=== PATIENT | female | born 1935 | race Asian ===

== ENCOUNTER 2018-04-30 21:30 | Inpatient (IN) | payer OTHER, MEDICAID ==
[~2018-04-30] VITALS: Ht 147.3 cm; Wt 26.8 kg
[2018-04-30 21:30] VITALS: BP_SYST 186
--- NOTE | 2018-04-30 21:37 | NUR ---
Placed in room 1 . Placed on monitor and storage bin tender, blood pressure machine and pulse oximeter. To gown for exam. Side rails up.
--- NOTE | 2018-04-30 21:38 | NUR ---
Pt was wheeled into ED by family complaining of congestion and shortness of breath x 1 hour. Daughter states patient was eating and patient was having a hard time breathing. Pt has temperature of 99.4 upon ED arrival. O2 saturation is 88% room air. Pt appears to be short of breath. No other injuries/complaints per patient or noted.
[2018-04-30] MEDS ORDERED: IPRATROPIUM/ALBUTEROL SULFATE 3 ML AMPUL.NEB (DUONEB) ONE (21:59)
[2018-04-30] MEDS ORDERED: IPRATROPIUM/ALBUTEROL SULFATE 3 ML AMPUL.NEB (DUONEB) INH ONE (22:00)
[2018-04-30] MEDS ORDERED: NACL 0.9% 1,000 ML IV ONE ×2 (22:00→23:00)
[2018-04-30] MEDS ORDERED: ACETAMINOPHEN 650 MG/20.3 ML UDC PO ONE (22:00)
[2018-04-30 22:22] LABS: BASOPHILS # (AUTO) 0.2 K/uL (0.0-0.2); BASOPHILS % (AUTO) 2.3 % (0.0-2.0); EOSINOPHILS % (AUTO) 0.1 % (0.0-4.0); HEMATOCRIT 42.8 % (36-48); HEMOGLOBIN 14.2 g/dL (12.0-16.0); LYMPHOCYTES # (AUTO) 0.6 K/uL (1.0-5.5); LYMPHOCYTES % (AUTO) 5.6 % (20.5-51.5); MEAN CORPUSCULAR HEMOGLOBIN 30 pg (27-31); MEAN CORPUSCULAR HGB CONC 33 % (32-36); MEAN CORPUSCULAR VOLUME 90 fL (79.0-98.0); MONOCYTES # (AUTO) 0.6 K/uL (0.0-1.0); MONOCYTES % (AUTO) 6.1 % (1.7-9.3); NEUTROPHILS # (AUTO) 9.2 K/uL (1.8-7.7); NEUTROPHILS % (AUTO) 85.9 % (40.0-70.0); PLATELET COUNT (AUTO) 241 K/uL (130-430); RED BLOOD CELL COUNT(AUTO) 4.78 MIL/uL (4.2-6.2); RED CELL DISTRIBUTION WIDTH 15.7 % (9.0-15.0); WHITE BLOOD COUNT (AUTO) 10.6 K/uL (4.8-10.8)
[2018-04-30] MEDS ORDERED: DILTIAZEM HCL 25 MG/5 ML VIAL IVP ONE (22:30)
[2018-04-30 22:35] LABS: ANION GAP 6 (5-15); CALCIUM 8.6 mg/dL (8.4-11.0); CHLORIDE 93 mmol/L (98-107); CREATININE 1.21 mg/dL (0.55-1.30); GLUCOSE 164 mg/dL (70-99); POTASSIUM 4.6 mmol/L (3.5-5.1); SODIUM SERUM 127 mmol/L (136-145); UREA NITROGEN, BLOOD 16 mg/dL (8-21)
[2018-04-30 22:41] LABS: ALANINE AMINOTRANSFERASE 49 U/L (12-78); ALBUMIN 2.4 g/dL (3.4-4.8); ASPARTATE AMINOTRANSFERASE 140 U/L (10-37); TOTAL BILIRUBIN 1.3 mg/dL (0.0-1.0)
[2018-04-30 22:52] LABS: BILIRUBIN,URINE NEGATIVE (NEGATIVE); BLOOD, URINE TRACE (NEGATIVE); CLARITY/URINE CLEAR (CLEAR); COLOR,URINE YELLOW (YELLOW); GLUCOSE,URINE NEGATIVE (NEGATIVE); KETONES,URINE NEGATIVE (NEGATIVE); LEUKOCYTE ESTERASE ,URINE NEGATIVE (NEGATIVE); NITRITE, URINE NEGATIVE (NEGATIVE); PH,URINE 6.5 (5.0-8.0); PROTEIN URINE 2+ (NEGATIVE)
[2018-04-30 22:55] LABS: BACTERIA,URINE FEW /HPF (None Seen); MUCUS,URINE 1+ /LPF (None Seen)
[2018-04-30] MEDS ORDERED: DIGO125T79 PO (23:00)
[2018-04-30] MEDS ORDERED: METO25TA3 PO (23:01)
[2018-04-30] MEDS ORDERED: OXYC-580 PO (23:03)
--- NOTE | 2018-04-30 23:03 | NUR ---
Medication reconciliation completed with information provided by family. Any prior medication reconciliation on file was reviewed and corrected.
--- NOTE | 2018-04-30 23:09 | NUR ---
ER Dr. Gabriel at bedside explaining results to patient's family.
[2018-05-01] VITALS (9 sets, daily range): BP systolic 140–164
[2018-05-01] MEDS ORDERED: DILTIAZEM HCL 25 MG/5 ML VIAL IVP ONE
[2018-05-01] MEDS ORDERED: KCL 20 mEq in D5/0.45NS 1000mL 1,000 ML IV ONE
--- NOTE | 2018-05-01 | NUR ---
IVF FLUID CHALLENGE CONTINUING IVF FLUID CHALLENGE INITIATED IN ER DUE TO SEPSIS PROTOCOL. WILL ADMINISTER SCHEDULED IVF WHEN FLUID CHALLENGE COMPLETE. OPERATIONS RESEARCH ANALYST AND EDUCATION PROGRAM SPECIALIST MADE AWARE.
--- NOTE | 2018-05-01 00:15 | NUR ---
Patient will be admitted to care of Dr. Kirk. Admitted to Telemetry unit. Will go to room 104 B. Belongings list completed. Summary report printed. Report will be given at bedside.
--- NOTE | 2018-05-01 00:15 | NUR ---
Transfer to Telemetry via ACLS protocol. Licensed nurse present. IV present no signs or symptoms of infiltration.
--- NOTE | 2018-05-01 00:24 | NUR ---
ADMISSION NOTE Received patient from ER via gurney. Patient admitted with diagnosis of Sepsis. Patient is awake, alert, oriented X 1. Patient oriented to hospital room, call light, toileting, pain management and safety-teach back done. Patient informed that ERNESTO Macario will be primary nurse and that their room number is 104B. Personal belongings checked and Belongings List documented. Call light within reach.
--- NOTE | 2018-05-01 00:40 | NUR ---
ROUNDING NOTE PT RESTING IN BED. FAMILY AT BEDSIDE. PT ON 2 L NASAL CANULA. IVF RUNNING PER ORDERS. FALL AND SAFETY PRECAUTIONS IN PLACE. BED LOCKED IN LOWEST POSITION. BED ALARM ON. CALL LIGHT WITH PT. PICTURES TAKE OF SKIN ISSUES. NO NEEDS RIGHT NOW. WILL CONTINUE TO MONITOR.
--- NOTE | 2018-05-01 01:00 | NUR ---
FLU VACCINE FAMILY REQUEST FLU VACCINE TO BE GIVEN UPON DISCHARGE.
[2018-05-01] MEDS: methylPREDNISolone SOD SUCC 40 MG/ML VIAL IVP SCH ×4 (01:21→18:11)
--- NOTE | 2018-05-01 02:00 | NUR ---
ROUNDING NOTE PT RESTING IN BED. NO S/S OF DISTRESS OR DISCOMFORT. CALL LIGHT WITH PT. WILL CONTINUE TO MONITOR.
[2018-05-01] MEDS: LevALBUTEROL HCL 1.25 MG/0.5 ML *CONC.* VIAL.NEB (XOPENEX CONC.) INH SCH ×5 (03:20→23:30)
--- NOTE | 2018-05-01 04:30 | NUR ---
ROUNDING NOTE PT RESTING. FAMILY AT BEDSIDE. NO S/S OF DISTRESS OR DISCOMFORT. CALL LIGHT WITH PT. WILL CONTINUE TO MONITOR.
--- NOTE | 2018-05-01 05:49 | NUR ---
MEDICATION ADMINISTRATION ADMINISTERED MEDICATION PER ORDERS. PT REMOVING NASAL CANULA. PT O2 SATURATION AT 95. WILL CONTINUE TO MONITOR.
--- NOTE | 2018-05-01 06:45 | NUR ---
DR. NORTON ORDERS INFORMED DR. NORTON OF TROPONIN WELL IVF. RECEIVED NEW ORDERS. WILL FOLLOW THROUGH WITH ORDERS.
--- NOTE | 2018-05-01 07:40 | NUR ---
CLOSING NOTE ENDORSED CARE AND REPORT TO DAY SHIFT. PT IS SLEEPING IN BED. NO S/S OF DISTRESS OR DISCOMFORT. FAMILY AT BEDSIDE. PT IN STABLE CONDITION. ALL NEEDS MET THROUGHOUT SHIFT. NO SIGNIFICANT CHANGES TO NOTE. FALL AND SAFETY PRECAUTIONS IN PLACE. CALL LIGHT WITH PT.
--- NOTE | 2018-05-01 07:43 | NUR ---
CONSULTATION PAGED REASON FOR CONSULTATION:ELEVATED TROPONIN WAS CONSULT CALLED?Y PERSON WHO WAS NOTIFIED:DONITA CONSULTING PHYSICIAN:ASHER HERRERA [employer] REPAIRER SPECIALTY:CARDIO [employer] REPAIRER PHONE NUMBER:[phone] ORDERING PHYSICIAN:LUZ MARINA BARONE
[2018-05-01] MEDS: D5NS 1,000 ML IV SCH ×2 (07:52→23:13)
--- NOTE | 2018-05-01 08:55 | NUR ---
INITIAL ROUNDS Received pt AAox2, no s/s resp distress, no c/o pain or discomfort. Pt's family at bedside. IVF infusing well to LAC at ordered rate with no s/s infiltration to site. Plan of care discussed with pt's family-they verbalized their understanding. BLE elevated on pillow with heels off-loaded. Pain management, skin and safety discussed-teach back done. Call light within reach.
[2018-05-01] MEDS ORDERED: ENOXAPARIN SODIUM 30 MG/0.3 ML SYRINGE SUBCUT ONE (09:00)
--- NOTE | 2018-05-01 09:04 | NUR ---
Nutrition Update Fox Scale 12 noted. Pt admitted for sepsis. Diet: mechanical soft BMI: 12.5 kg/m2 RD to follow per nutrition care standards.
[2018-05-01] MEDS: DIGOXIN 0.125 MG TABLET PO SCH (09:45)
--- NOTE | 2018-05-01 11:30 | NUR ---
Dietitian Recommendations * Recommend CCHO, mechanical soft diet, Glucerna TID (oral supplement provides an additional 660 kcal/day and 30 gm protein/day) LP, RD Please refer to Nutrition Assessment for details.
--- NOTE | 2018-05-01 12:50 | NUR ---
ROUNDS/EDEMA Pt sitting up in bed being assisted with her lunch by her family. No s/s resp distress, c/o left foot pain-noted pt with edema to both feet. BLE elevated on pillows with heels off-loaded for skin care and for to promote fluid return. Needs met, call light within reach.
[2018-05-01] MEDS: oxyCODONE HCL 5 MG TABLET PO PRN ×3 (13:25→23:12)
--- NOTE | 2018-05-01 16:39 | NUR ---
ELEVATED BP/MD CALLED Pt has elevated BP 166/90, earlier it was 160/90-pt given pain medication. Dr. Yelena still, awaiting call back.
--- NOTE | 2018-05-01 18:00 | NUR ---
BSC/ Spoke with Dr. Kirk and informed him of pt's elevated BP, no PRN medication ordered, MD stated he will come and see pt, then decide if he will give her medication. Pt assisted to the bedside commode, pt voided and pt assisted back to bed. Pt's family remains at bedside. Call light within reach.
--- NOTE | 2018-05-01 19:10 | NUR ---
CLOSING NOTE Pt resting quietly in bed with no s/s resp distress, no further c/o pain or discomfort. Pt's family remains at bedside. All precautions remain in place. Needs met, call light within reach.
--- NOTE | 2018-05-01 19:40 | NUR ---
OPENING NOTE RECEIVED PT AND REPORT FROM DAY SHIFT. PT IS SLEEPING IN BED. NO S/S OF DISTRESS OR DISCOMFORT. PT ON ROOM AIR. IV INTACT AND RUNNING IVF PER ORDERS. FALL AND SAFETY PRECAUTIONS IN PLACE. BED LOCKED IN LOWEST POSITION. BED ALARM ON. CALL LIGHT WITH PT. FAMILY WITH PT. WILL CONTINUE TO MONITOR.
[2018-05-01] MEDS: METOPROLOL SUCCINATE 25 MG TAB.SR.24H (TOPROL XL) PO SCH (20:52)
--- NOTE | 2018-05-01 20:52 | NUR ---
MEDICATION ADMINISTRATION ADMINISTERED MEDICATION PER ORDERS. DAUGHTER AT BEDSIDE. CALL LIGHT WITH PT. WILL CONTINUE TO MONITOR.
--- NOTE | 2018-05-01 22:05 | NUR ---
DR. NORTON ORDERS INFORMED DR NORTON OF CONSTIPATION. NEW ORDERS RECEIVED. WILL FOLLOW THROUGH WITH ORDERS.
--- NOTE | 2018-05-01 23:13 | NUR ---
IVF/ PAIN MED REFUSAL ADMINISTERED IVF. FAMILY STATES PT WANTS PAIN MED. PT REFUSES PAIN MED. MEDICATION WASTED.
[2018-05-02] VITALS (7 sets, daily range): BP systolic 155–191
[2018-05-02] MEDS: methylPREDNISolone SOD SUCC 40 MG/ML VIAL IVP SCH ×5 (02:01→23:01)
[2018-05-02] MEDS: LevALBUTEROL HCL 1.25 MG/0.5 ML *CONC.* VIAL.NEB (XOPENEX CONC.) INH SCH ×6 (02:10→23:41)
--- NOTE | 2018-05-02 02:15 | NUR ---
BED JONES. ASSISTED PT ON BED JONES PER FAMILY REQUEST. PT DID NOT VOID. WILL CONTINUE TO MONITOR.
--- NOTE | 2018-05-02 04:05 | NUR ---
ROUNDING NOTE PT RESTING WITH EYES CLOSED. FAMILY SLEEPING IN CHAIR. BREATHING UNLABORED. CALL LIGHT WITH PT. WILL CONTINUE TO MONITOR.
[2018-05-02 06:23] LABS: ANION GAP 3 (5-15); CALCIUM 8.1 mg/dL (8.4-11.0); CHLORIDE 102 mmol/L (98-107); CREATININE 0.66 mg/dL (0.55-1.30); DIGOXIN 0.4 ng/mL (0.80-2.00); GLUCOSE 203 mg/dL (70-99); POTASSIUM 3.2 mmol/L (3.5-5.1); SODIUM SERUM 132 mmol/L (136-145); UREA NITROGEN, BLOOD 16 mg/dL (8-21)
--- NOTE | 2018-05-02 06:30 | NUR ---
MEDICATION ADMINISTRATION ADMINISTERED MEDICATION PER ORDERS. PT RESTING IN BED. FAMILY REMAINS AT BEDSIDE. WILL CONTINUE TO MONITOR.
--- NOTE | 2018-05-02 06:49 | NUR ---
CLOSING NOTE WILL ENDORSE CARE AND REPORT TO DAY SHIFT. WILL ENDORSE PLAN OF CARE. PT CURRENTLY SLEEPING IN BED. FAMILY AT BEDSIDE. NO S/S OF DISTRESS OR DISCOMFORT. BREATHING EVEN AND UNLABORED. PT IN STABLE CONDITION. ALL NEEDS MET THROUGHOUT SHIFT. NO SIGNIFICANT CHANGES TO NOTE DURING SHIFT. IVF RUNNING PER ORDERS. CALL LIGHT WITH PT. WILL CONTINUE TO MONITOR.
[2018-05-02 06:51] LABS: BASOPHILS % (AUTO) 0.1 % (0.0-2.0); EOSINOPHILS % (AUTO) 0.1 % (0.0-4.0); HEMATOCRIT 36.6 % (36-48); HEMOGLOBIN 12.3 g/dL (12.0-16.0); LYMPHOCYTES # (AUTO) 0.2 K/uL (1.0-5.5); LYMPHOCYTES % (AUTO) 3.3 % (20.5-51.5); MEAN CORPUSCULAR HEMOGLOBIN 30 pg (27-31); MEAN CORPUSCULAR HGB CONC 34 % (32-36); MEAN CORPUSCULAR VOLUME 90 fL (79.0-98.0); MONOCYTES # (AUTO) 0.3 K/uL (0.0-1.0); MONOCYTES % (AUTO) 4.3 % (1.7-9.3); NEUTROPHILS # (AUTO) 6.2 K/uL (1.8-7.7); NEUTROPHILS % (AUTO) 92.2 % (40.0-70.0); PLATELET COUNT (AUTO) 191 K/uL (130-430); RED BLOOD CELL COUNT(AUTO) 4.08 MIL/uL (4.2-6.2); RED CELL DISTRIBUTION WIDTH 15.8 % (9.0-15.0); WHITE BLOOD COUNT (AUTO) 6.7 K/uL (4.8-10.8)
--- NOTE | 2018-05-02 08:00 | NUR ---
AM NOTES Patient is laying in bed resting. No s/s of SOB or distress. Pain managed with prescribed pain medication. Patient able to walk with assistance to bedside commode and urinate. Bed in lowest position, call light within reach. Patient oriented to room. Family at bedside. Addendum: 05/02/18 at 0906 by Nila Hunter RN AM NOTES Patient is laying in bed resting. No s/s of SOB or distress. Pain managed with prescribed pain medication. Patient able to walk with assistance to bedside commode and urinate. Edema on bilateral feet noted, legs elevated. Left 18G IV site intact, dressing is dry, fluids running as ordered. Bed in lowest position, call light within reach. Patient oriented to room. Family at bedside.
[2018-05-02] MEDS: oxyCODONE HCL 5 MG TABLET PO PRN ×3 (08:49→21:41)
[2018-05-02] MEDS: DIGOXIN 0.125 MG TABLET PO SCH (08:49)
[2018-05-02] MEDS: ENOXAPARIN SODIUM 30 MG/0.3 ML SYRINGE SUBCUT SCH (08:51)
--- NOTE | 2018-05-02 10:28 | NUR ---
Wound Evaluation: Late note for 1027 secondary to patient care. Wound Consult ordered for Low Fox Score. Patient evaluated for a low Fox score of 12. Patient was awake, alert, Mandarin speaking, and received in a Carlos Bed with an Atmos-Air 9000 mattress. Patient needs assist to turn in bed secondary to weakness. Skin is fair. Recommend reposition patient side to side only every 2 hours with pillow support. Elevate, offload and float bilateral heels with one pillow lengthwise under each extremity at all times. Offload pressure areas with pillows for pressure re-distribution. Perform skin care and monitor skin integrity Q shift. Use moisture barrier cream on moisture susceptible areas QID and PRN for soiling. Place patient on a low air-loss mattress. Skin assessment: 1. 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 Recommend: Cleanse involved area with mild soap and water. Pat dry. Apply moisture barrier cream to involved area. Do not place patient on involved area, patient must be turned side to side only. 2. Bilateral heels: Blanchable erythema, present on admission. Recommend: Elevate, offload and float bilateral heels with one pillow lengthwise under each extremity at all times. Will continue to follow as a Fox.
--- NOTE | 2018-05-02 13:00 | NUR ---
AFTERNOON ROUNDS Patient laying in bed resting. No s/s of distress or SOB. Patient is assisted to bedside commode with family and nurse. Bed in lowest position, call light within reach.
[2018-05-02] MEDS: D5NS 1,000 ML IV SCH (14:43)
[2018-05-02] MEDS ORDERED: BISACODYL 10 MG/SUPPOSITORY RC PRN (15:45)
--- NOTE | 2018-05-02 16:00 | NUR ---
BM: Patient had one BM after Dulcolax Suppository was given.
--- NOTE | 2018-05-02 17:30 | NUR ---
HIGH bp: BP= 191/107, Clonidine 0.[address] po [address] per Dr[address] Antoine.
[2018-05-02] MEDS ORDERED: cloNIDine HCL 0.1 MG TABLET ONE (17:32)
[2018-05-02] MEDS ORDERED: cloNIDine HCL 0.1 MG TABLET PO ONE (18:15)
[2018-05-02] MEDS ORDERED: POTASSIUM CHLORIDE 20 MEQ/PKT PACKET PO ONE (19:15)
[2018-05-02] MEDS ORDERED: amLODIPine BESYLATE 10 MG TABLET PO ONE (19:15)
--- NOTE | 2018-05-02 19:24 | NUR ---
CLOSING NOTES Patient laying in bed resting. Family at bedside. No s/s of distress or SOB. Bed in lowest position, call light within reach. B/P reassessed and is 171/85 after administration of Clonidine 0.1mg po. MD aware. All needs met throughout shift.
--- NOTE | 2018-05-02 19:30 | NUR ---
OPENING NOTE RECEIVED PT AND REPORT FROM DAY SHIFT. PT IS SITTING AWAKE IN BED. PT DENIES PAIN AT THIS TIME. FAMILY AT BEDSIDE. PT ON ROOM AIR. IV INTACT AND RUNNING IVF PER ORDERS. FALL AND SAFETY PRECAUTIONS IN PLACE. BED LOCKED IN LOWEST POSITION. BED ALARM ON. CALL LIGHT WITH PT. WILL CONTINUE TO MONITOR.
--- NOTE | 2018-05-02 19:42 | NUR ---
HIGH BP, LOW POTASSIUM, MEDICATION ADMINISTRATION ADMINISTERED ONE TIME DOSE OF ORDERED BP MEDICATION AND POTASSIUM. BP OF 175/97. WILL REASSESS
[2018-05-02] MEDS: METOPROLOL SUCCINATE 25 MG TAB.SR.24H (TOPROL XL) PO SCH (20:55)
--- NOTE | 2018-05-02 20:55 | NUR ---
Medication admin/ BP BP now 155/87. Administered medication per orders. Family at bedside. will continue to monitor.
[2018-05-02] MEDS: SENNOSIDES 8.6 MG TABLET PO SCH (20:59)
--- NOTE | 2018-05-02 21:42 | NUR ---
PAIN MEDICATION PT REPORTS CHEST PAIN AFTER GETTING UP TO COMMODE. ADMINISTERED PRN PAIN MEDICATION PER ORDERS. WILL CONTINUE TO MONITOR.
--- NOTE | 2018-05-02 22:51 | NUR ---
ROUNDING NOTE/ BP PT SLEEPING IN BED. FAMILY AT BEDSIDE. BP TAKEN BY SENIOR FACILITIES MANAGER: 147/77
--- NOTE | 2018-05-02 23:03 | NUR ---
MEDICATION ADMINISTRATION ADMINISTERED MEDICATION PER ORDERS. PT RESTING IN BED. FAMILY AT BEDSIDE. WILL CONTINUE TO MONITOR.
--- NOTE | 2018-05-02 23:40 | NUR ---
WHEEZING PT WHEEZING AND REPORTS DIFFICULTY BREATHING. RT CALLED, BREATHING TREATMENT ADMINISTERED.
[2018-05-03] VITALS: BP_SYST 147
--- NOTE | 2018-05-03 01:30 | NUR ---
ROUNDING NOTE PT SLEEPING IN BED. NO WHEEZING NOTED. CALL LIGHT WITH PT. WILL CONTINUE TO MONITOR.
--- NOTE | 2018-05-03 03:50 | NUR ---
ROUNDING NOTE RT AT BEDSIDE ADMINISTERING BREATHING TREATMENT. PT RESTING IN BED. FAMILY REMAINS AT BEDSIDE. WILL CONTINUE TO MONITOR.
[2018-05-03] MEDS: LevALBUTEROL HCL 1.25 MG/0.5 ML *CONC.* VIAL.NEB (XOPENEX CONC.) INH SCH ×6 (03:59→23:42)
[2018-05-03] MEDS: methylPREDNISolone SOD SUCC 40 MG/ML VIAL IVP SCH ×4 (05:02→23:24)
--- NOTE | 2018-05-03 05:02 | NUR ---
MEDICATION ADMINISTRATION ADMINISTERED MEDICATION AND IVF PER ORDERS. PT SLEEPING AT THIS TIME. NO S/S OF ACUTE DISTRESS. FAMILY AT BEDSIDE. WILL CONTINUE TO MONITOR.
[2018-05-03] MEDS: D5NS 1,000 ML IV SCH ×2 (05:03→23:22)
[2018-05-03] MEDS: oxyCODONE HCL 5 MG TABLET PO PRN ×2 (06:05→21:35)
--- NOTE | 2018-05-03 06:05 | NUR ---
PRN PAIN MED ADMINISTERED PRN PAIN MEDICATION PER ORDERS. FAMILY AT BEDSIDE. NO OTHER NEEDS. CALL LIGHT WITH PT. WILL CONTINUE TO MONITOR.
--- NOTE | 2018-05-03 06:35 | NUR ---
CLOSING NOTE WILL ENDORSE CARE AND REPORT TO DAY SHIFT NURSE. PT CURRENTLY RESTING IN BED. PAIN MEDICATION RECENTLY ADMINISTERED. IVF RUNNING PER ORDERS. PT IN STABLE CONDITION. ALL NEEDS MET THROUGHOUT SHIFT. WILL ENDORSE PLAN OF CARE. FAMILY REMAINS AT BEDSIDE. CALL LIGHT WITH PT. WILL CONTINUE TO MONITOR.
--- NOTE | 2018-05-03 07:46 | NUR ---
INITIAL NOTE REPORT RECEIVED AT BEDSIDE BY JAKE OROZCO. PT AWAKE, ALERT, MANDARIN SPEAKING ONLY, DAUGHTER AT BEDSIDE FOR TRANSLATION. PER DAUGHTER, PT AAO X1. PT ON 2 LITERS NC, AUDIBLE WHEEZING NOTED. PT DIAPHORETIC, SOB, VS TAKEN. T 96.8, BP 118/88 HR 100, RR 25, O2 75%. O2 INCREASED TO 4 LITERS, NASAL CANULA, RT CALLED TO BEDSIDE FOR BREATHING TREATMENT AND TO ADD HUMIDIFIER TO NASAL CANULA TO INCREASE PT COMFORT AND COMPLIANCE TO KEEPING NASAL CANULA ON. PT SATURATING AT 95% NOW, RR 20, PT APPEARS CALMER, NO LONGER UNDER DISTRESS. PT AND FAMILY EDUCATED TO KEEP NASAL CANULA ON, DIAPHORESIS RELATED TO PT WORKING TO BREATH, ENCOURAGED TO CALL FOR BEDPAN RATHER THAN ASSISTING PT TO BSC DUE TO WEAKNESS, PT DYSPNEA UPON EXERTION AND SAFETY. PT AND FAMILY VERBALIZED UNDERSTANDING AND AGREEMENT. PT NOW SATURATING AT 94% ON 3 LITERS AFTER BREATHING TREATMENT. CALL LIGHT WITHIN REACH, SAFETY PRECAUTIONS IN PLACE, WILL MONITOR PT CLOSELY
[2018-05-03 08:05] VITALS: BP_SYST 118
[2018-05-03] MEDS: ENOXAPARIN SODIUM 30 MG/0.3 ML SYRINGE SUBCUT SCH (08:22)
[2018-05-03] MEDS: DIGOXIN 0.125 MG TABLET PO SCH (08:23)
[2018-05-03] MEDS ORDERED: amLODIPine BESYLATE 10 MG TABLET PO SCH (09:00)
--- NOTE | 2018-05-03 09:48 | NUR ---
DR AJAY MERRILL, MADE AWARE OF PT EPISODE THIS MORNING OF DIAPHORESIS AND MIKHAIL 02MD STATED IT IS TO BE EXPECTED DUE TO HEALTH HISTORY, CONTINUE WITH CURRENT PLAN OF CARE
--- NOTE | 2018-05-03 10:00 | NUR ---
ROUNDS PT LAYING IN BED, SON AT BEDSIDE, PT COMMUNICATES THAT SHE FEELS BETTER, BREATHING UNLABORED, PT SATURATING AT 93% ON 3 LITERS. COMPLIANT WITH NASAL CANULA IN PLACE, IVF INFUSING, SON AT BEDSIDE, UPDATED ON PT STATUS AND PLAN OF CARE. ANIMAL GENETICIST AT BEDSIDE TO CHANGE PT D/Y VOIDED. TOLERATED WELL. SLIGHTLY REPOSITIONED TO OPPOSITE SIDE, CALL LIGHT WITHIN REACH, SAFETY PRECAUTIONS IN PLACE, WILL FOLLOW UP
[2018-05-03 11:04] VITALS: BP_SYST 156
--- NOTE | 2018-05-03 11:26 | NUR ---
BREATHING TREATMENT/ SOLU-MEDROL GIVEN PT LAYING TO SIDE IN BED, RESTING, SON AT BEDSIDE. BREATHING EVEN AND UNLABORED, PT SATURATING AT 94% ON 3 LITERS NASAL CANULA, NO DIAPHORESIS OR DYSPNEA NOTED, CALL LIGHT WITHIN REACH, WILL CONTINUE TO MONITOR PT CLOSELY
--- NOTE | 2018-05-03 13:45 | NUR ---
DR NORTON MAKING ROUNDS, MADE AWARE OF PT BLOOD PRESSURE AND FAMILY WORRIED. MD STATED FOR HER STATE WE DO NOT WANT THE BP TOO LOW, HYPOTENSIVE. BP IS FINE LONG IT IS BELOW 160 SYSTOLIC, FAMILY UPDATED ON MD ORDERS AND MD TO MAKE ROUNDS.
[2018-05-03 16:00] VITALS: BP_SYST 149
--- NOTE | 2018-05-03 16:02 | NUR ---
ROUNDS PT LAYING IN BED, AWAKE, ALERT, FAMILY AT BEDSIDE. NO S/S OF ACUTE DISTRESS OR DIAPHORESIS AT THIS TIME. APPEARS CALM, SATURATING AT 92% ON 3 LITERS NASAL CANULA, PT FREQUENTLY SEEN TAKING NASAL CANULA OFF AND FAMILY MEMBERS STRUGGLING TO ENCOURAGE PT TO KEEP NC IN PLACE. CALL LIGHT WITHIN REACH, WILL CONTINUE TO ROUND HOURLY
--- NOTE | 2018-05-03 18:51 | NUR ---
LOW OXYGENATION FAMILY REPORTED TO RN THAT PT WAS RESTLESS, PULLING AT NASAL CANULA, PT ASSESSED, PT SATURATING AT 70%, RESPIRATORY THERAPY CALLED, PT ENCOURAGED TO COUGH AND DEEP BREATH O2 INCREASED TO 100% RT AT SIDE, BREATHING TREATMENT STARTED. PT STILL SATURATING AT 73%. RT DEEP SUCTIONED PT SEVERAL TIMES, PT TOLERATED WELL. PT HAS NO COUGH/ GAG REFLEX. UNABLE TO COUGH UP ANYTHING. PT SATURATING AT 75%. DR NORTON MAKING ROUNDS. UPDATED ON PT STATUS. ASSESSED PATIENT, ORDERED STAT CHEST XRAY TO ASSESS FOR FLUID IN LUNGS, PT ON NON REBREATHER MASK AT 100%, NOTED TO BE FIGHTING TO FAMILY MEMBER, PULLING MASK OFF. PT NOW SATURATING AT 83%, MD AWARE.
[2018-05-03] MEDS ORDERED: MORPHINE 2 MG/ML INJ. SYRINGE IVP PRN (19:00)
--- NOTE | 2018-05-03 19:01 | NUR ---
CLOSING NOTE PT AWAKE, CONFUSED, TUGGING AT NON REBREATHER MASK, 2 FAMILY MEMBERS AT BEDSIDE. SATURATING AT 83%, LABORED BREATHING NOTED. ALL NEEDS ATTENDED TO THROUGHOUT SHIFT, SAFETY PRECAUTIONS MAINTAINED, WILL GIVEN REPORT TO FOLLOWING SHIFT.
[2018-05-03 19:30] VITALS: BP_SYST 137
--- NOTE | 2018-05-03 19:30 | NUR ---
CHANGE OF SHIFT: pt. on high fowlers position, Dr. Kirk was just here, CXR was done with low O2 sat 2 86%, remain on 100% NRM, noted pt. taking it off, informed family to keep her hand off the mask.
--- NOTE | 2018-05-03 19:46 | NUR ---
CONSULT CONSULT CALLED FOR DR. TEE I SPOKE WITH JOE COOL REASON FOR: RESPIRATORY FAILURE REQUESTING CONSULT: DR. NORTON ART FRAMING MANAGER PHONE NUMBER: [phone]
--- NOTE | 2018-05-03 20:00 | NUR ---
NOTES: Dr. pop called fro CXR result, order IV Lasix. aware pt. on 100% NRM.
--- NOTE | 2018-05-03 20:25 | NUR ---
NOTES: pt. family asked if they could give some rice soup, placed on 5l nc, pt. drooling, advised family not to feed her for now, kept HOB elevated, placed back on 100% NRM.
[2018-05-03] MEDS ORDERED: FUROSEMIDE 40 MG/4 ML VIAL IVP SCH (21:30)
[2018-05-03] MEDS: SENNOSIDES 8.6 MG TABLET PO SCH (21:33)
[2018-05-03] MEDS: METOPROLOL SUCCINATE 25 MG TAB.SR.24H (TOPROL XL) PO SCH (21:34)
--- NOTE | 2018-05-03 21:57 | NUR ---
NOTES: due hs care and sg care, pt. incontinent of urine. informed pt. family IV Lasix given. oral meds crushed but having difficulty swallowing, able to give pain med. keep HOB elevated. 2 daughters an son at bedside., will hold the rest of medication, afraid of aspiration, family informed. still constantly tried to remove O2 per pt., practically holding her hand. Addendum: 05/03/18 at 2222 by Yoli Hartmann RN noted swelling on both lower extremities. maintained bed rest. 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
--- NOTE | 2018-05-03 23:45 | NUR ---
NOTES: O2 sat down to 87%-88%, in no acute distress, pt. checked and resting, 100 % NRM in place, called RT to give breathing treatment. HOB kept elevated. pt. calmer this time, no discomfort noted.
[2018-05-04] VITALS (7 sets, daily range): BP systolic 0–126
--- NOTE | 2018-05-04 00:58 | NUR ---
NOTES: O2 sat 91%. pt. resting, son at bedside.
--- NOTE | 2018-05-04 01:15 | NUR ---
NOTES: pt. checked, still awake but calm, repositioned and sg care done, incontinent of urine. condition guarded.
--- NOTE | 2018-05-04 02:14 | NUR ---
NOTES: O2 sat down bet. 81%-83%, checked pt., in no acute distress, not c/o shortness of breath, appears comfortable. changed pulse ox sensor. kept both eyes open, rt. eye slightly red. remains sinus rhythm. IVF patent.
--- NOTE | 2018-05-04 03:34 | NUR ---
NOTES: pt. checked, resting calmy, arousable calling her name. O2 sat @ 71%, suctioned orally with very scant mucus. VS checked , BP 95/54 HR 67. son informed about the change in resp. status.
--- NOTE | 2018-05-04 03:46 | NUR ---
NOTES: pt. O2 sat consistently dropping 71-74%,skin warm and dry. rechecked BP 99/51 HR 63, charge nurse Jacqueline aware and at bedside to check apical pulse, still audible , weak pulse on radial. informed son about condition deteriorating, called her sisters. condition guarded closely. pt. still responds when name called. told son to talk to pt.
--- NOTE | 2018-05-04 04:05 | NUR ---
NOTES: pt. starting to get less responsive. BP 89/48 HR 64. checked pupils sluggish, right eye red with small blood clot noted. O2 sat 76%. pt. DNR, son aware.
--- NOTE | 2018-05-04 04:23 | NUR ---
NOTES: pt. daughter Marti here , the personal service workers, informed her the deteriorating condition of pt. with O2 sat continuously dropping with VS (BP/HR), will talk to other family member if they want pt. to have Morphine IV as ordered for comfort.
--- NOTE | 2018-05-04 05:33 | NUR ---
NOTES: checked VS, BP 81/50 HR 61 O2 sat 76%, HOB elevated with shaloow breathing. still arousable when name called. family remain at bedside. for close observation.
[2018-05-04] MEDS: methylPREDNISolone SOD SUCC 40 MG/ML VIAL IVP SCH (06:03)
--- NOTE | 2018-05-04 06:08 | NUR ---
NOTES: rechecked VS, BP 69/40 HR 59 O2 sat 73%. oral suction done, very scant mucus, barely no gag reflex. paced rhythm on the monitor. another daughter came. pt. daughter Marti they dont want Morphine to be given. noted hands getting cool, remains swollen on both lower extremities, kept covered with blanket. family being updated on pt. status.
--- NOTE | 2018-05-04 06:34 | NUR ---
NOTES: BP 51/28 HR 60, unable to sense O2 sat, cool fingers. pt. daughter Marti made aware of it, breathing less around 10/min. pupils non reactive. on paced rhythm.
--- NOTE | 2018-05-04 06:50 | NUR ---
NOTES: checked pt. unresponsive, unable to take BP, nurse Isra here and checked apical pulse, unable to hear heart tones, pt. already stopped breathing, paced rhythm but no pulse. family here at bedside and made them aware. charge nurse Jacqueline also informed of pt. expiration, Jacqueline called ER, will have to verfy with ER MD because of pacemaker. waiting to be pronounced.
--- NOTE | 2018-05-04 06:55 | NUR ---
NOTES; ER Dr. Linda CHIU and ER nurse Latisha here, checked pt. and pronounced @ [id number].
--- NOTE | 2018-05-04 07:06 | NUR ---
NOTES; record of initiated, will endorse to next shift. pt. daughter called her agent for the mortuary
--- NOTE | 2018-05-04 07:28 | NUR ---
Dr. Kirk called and informed about pt. expiration and will sign the certificate. endorsed to charge nurse Correia. nurse Dhaliwal called [facility].
[2018-05-04] MEDS ORDERED: amLODIPine BESYLATE 10 MG TABLET PO SCH (09:00)
== END 2018-05-04 06:59 | disposition expired | DRG 871 ==
LOC: SED 21:30 → STU 23:49
PROVIDERS: ADMIT Family Medicine; ATTEND Family Medicine
DX: A41.9 Sepsis, unspecified organism (principal); E43 Unspecified severe protein-calorie malnutrition; J96.00 Acute respiratory failure, unspecified whether with hypoxia or hypercapnia; J69.0 Pneumonitis due to inhalation of food and vomit; E87.1 Hypo-osmolality and hyponatremia; C18.9 Malignant neoplasm of colon, unspecified; C78.7 Secondary malignant neoplasm of liver and intrahepatic bile duct; C78.00 Secondary malignant neoplasm of unspecified lung; Z68.1 Body mass index [BMI] 19.9 or less, adult; R74.0 Nonspecific elevation of levels of transaminase and lactic acid dehydrogenase [LDH]; R62.7 Adult failure to thrive; I10 Essential (primary) hypertension; I25.10 Atherosclerotic heart disease of native coronary artery without angina pectoris; Z51.5 Encounter for palliative care; I48.2 Chronic atrial fibrillation; Z66 Do not resuscitate; Z92.21 Personal history of antineoplastic chemotherapy; Z95.0 Presence of cardiac pacemaker; Z90.710 Acquired absence of both cervix and uterus; Z90.49 Acquired absence of other specified parts of digestive tract; Z88.0 Allergy status to penicillin; Z88.8 Allergy status to other drugs, medicaments and biological substances; Z79.899 Other long term (current) drug therapy
CPT/HCPCS: 36415; 71045; 80048; 80053; 80162-TC; 81000-TC; 83605; 83735-TC; 84100-TC; 84484; 85025; 87040-TC; 87086; 93005; 93306; 94640; 94760; 96361; 96365; 96375; 96376; 99285; J1030; J1650; J1940; J1956; J3490; J7030; J7042; J7612; J7620